=== PATIENT | male | born 1945 | race African-American/Black ===

== ENCOUNTER 2019-09-23 04:09 | Inpatient (IN) | payer MEDICARE, OTHER ==
[~2019-09-23] VITALS: Ht 175.3 cm; Wt 68.8 kg
[~2019-09-23 04:09] MED LIST: ASPI-496 PO; DEXT15DR5 EACHEYE; HYDR-3240 PO; METH750T87 PO; TRIA1CAP3 PO
--- NOTE | 2019-09-23 04:24 | NUR ---
Pt arrives via EMS for left sided, sharp chest pain with SOB that started around 0030. Pt denies previous cardiac hx. Pt is alert and oriented. Pt with slightly labored breathing and HR in the 120-130's. Pt able to ambulate with stand-by assist. 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 PIV placed by EMS. Pt does not wear oxygen at home. Pt current 50 year smoker. Pt in gown and monitors. EKG performed.
[2019-09-23] MEDS ORDERED: SODIUM CHLORIDE FLUSH 10ML SYR IVF ONE (04:30)
[2019-09-23] MEDS ORDERED: ASPI-496 PO ×2 (04:40→14:01)
[2019-09-23] MEDS ORDERED: PRED5TAB19 PO (04:40)
[2019-09-23] MEDS ORDERED: ALBU0.63 NEB (04:40)
[2019-09-23] MEDS ORDERED: POVI15DR EACHEYE (04:40)
[2019-09-23] MEDS ORDERED: FERR325T5 PO (04:40)
[2019-09-23] MEDS ORDERED: QUET50TA79 PO (04:40)
[2019-09-23] MEDS ORDERED: NICO-487 TD (04:40)
--- NOTE | 2019-09-23 04:42 | NUR ---
Lab at bedside for draw. Pt reports improvement in SOB symptoms. Pt continues to report 3/10 sharp chest pain.
[2019-09-23 04:53] LABS: MEAN CORPUSCULAR HEMOGLOBIN 19.9 pg (27.5-34.5); MEAN CORPUSCULAR VOLUME 66.4 fL (81-97); MEAN PLATELET VOLUME 6.2 fL (7.4-10.4); PLATELET COUNT 475 x10^3/uL (130-400)
[2019-09-23 05:02] LABS: ALANINE AMINOTRANSFERASE 26 U/L (12-78); ANION GAP 8 mmol/L (5-15); CALCIUM 8.2 mg/dL (8.5-10.1); CHLORIDE 105 mmol/L (98-107)
[2019-09-23 05:07] LABS: ALKALINE PHOSPHATASE 70 U/L (45-117); BILIRUBIN,TOTAL 0.3 mg/dL (0.2-1.0); CREATININE 0.92 mg/dL (0.7-1.3); T4 (THYROXINE) 8.7 mcg/dL (4.5-12.1); TOTAL PROTEIN 7.3 g/dL (6.4-8.2); TROPONIN I < 0.015 ng/mL (0.000-0.045)
--- NOTE | 2019-09-23 05:15 | NUR ---
SPOKE WITH PA ABOUT WBC AND TACHYCARDIA. LACTATE, FLUIDS, AND BCX2 SUGGESTED. HE WILL CONSULT WITH .
[2019-09-23] MEDS ORDERED: METOPROLOL 1 MG/ML, 5ML ONE (05:22)
[2019-09-23] MEDS ORDERED: NITROGLYCERIN OINT 2%, 1GM TP ONE ×2 (05:23→05:30)
[2019-09-23] MEDS: METOPROLOL 1 MG/ML, 5ML IVPush PRN ×2 (05:28→13:07)
[2019-09-23] MEDS ORDERED: NITROGLYCERIN SINGLE TAB 0.4 MG SL PRN (05:30)
[2019-09-23] MEDS ORDERED: SODIUM CHLORIDE 0.9% 1,000ML IVBOLUS ONE (05:30)
--- NOTE | 2019-09-23 05:30 | NUR ---
Pt medicated with nitro paste and one dose of metoprolol. NS bolus started. Pt reports improvement of symptoms with heart rate in the low 100's.
[2019-09-23 05:42] LABS: MD YES
[2019-09-23 05:43] LABS: BANDS%(MANUAL) 1 % (0-7); EOS% (MANUAL) 1 % (1-7); LYMPH#(MANUAL) 2.55 x10^3/uL (1-3.4); LYMPHS% (MANUAL) 13 % (22-44); MONOS#(MANUAL) 0.59 x10^3/uL (0.3-2.7); MONOS% (MANUAL) 3 % (2-9); SEG#(MANUAL) 16.07 x10^3/uL (1.8-6.8); SEGS% (MANUAL) 82 % (42-75)
[2019-09-23 05:44] LABS: ANISOCYTOSIS 1+; HYPOCHROMIA 1+; MICROCYTOSIS 2+; POLYCHROMASIA 1+
[2019-09-23 05:45] LABS: <PLATELET ESTIMATE> INCREASED; <PLT MORPHOLOGY> NORMAL PLT MORPH
--- NOTE | 2019-09-23 06:00 | NUR ---
maria guadalupe: [phone] (daughter)
--- NOTE | 2019-09-23 06:27 | NUR ---
SPOKE TO PA ABOUT ABX. HE WILL CONSULT WITH MD WHEN HE RETURNS AND ORDER ACCORDINGLY.
--- NOTE | 2019-09-23 06:41 | NUR ---
NO ABX PER ERMD AND ER PA
--- NOTE | 2019-09-23 06:58 | NUR ---
RECEIVED REPORT FROM NIDA LAZAR
[2019-09-23] MEDS ORDERED: KETOROLAC 30 MG/1 ML IV PRN (07:30)
[2019-09-23] MEDS ORDERED: ONDANSETRON ODT 4 MG PO PRN (07:30)
[2019-09-23] MEDS ORDERED: ACETAMINOPHEN 325 MG TABLET PO PRN (07:30)
[2019-09-23] MEDS ORDERED: ONDANSETRON 2MG/ML, 2ML IVPush PRN (07:30)
[2019-09-23] MEDS ORDERED: CARVEDILOL 6.25 MG TABLET PO SCH (07:30)
[2019-09-23] MEDS ORDERED: NITROGLYCERIN 0.4 MG BOTTLE (25 TABS) SL PRN (07:30)
[2019-09-23] MEDS ORDERED: POTASSIUM CHLORIDE 20 MEQ TAB.ER.PRT PO ONE (07:30)
[2019-09-23] MEDS ORDERED: FERROUS SULFATE 325 MG TABLET PO SCH (07:30)
[2019-09-23] MEDS ORDERED: MORPHINE SULFATE 4 MG/ML, 1ML IVPush PRN (07:30)
[2019-09-23] MEDS ORDERED: POTASSIUM CHLORIDE 20 MEQ TAB.ER.PRT ONE (07:42)
[2019-09-23] MEDS ORDERED: ENOXAPARIN 40 MG/0.4 ML ONE (07:42)
[2019-09-23] MEDS ORDERED: CARVEDILOL 3.125 MG TABLET ONE (07:42)
[2019-09-23] MEDS: ENOXAPARIN 40 MG/0.4 ML SQ SCH (07:48)
[2019-09-23 07:50] LABS: TROPONIN I 0.017 ng/mL (0.000-0.045)
--- NOTE | 2019-09-23 08:20 | NUR ---
AFTER MORNING MEDS GIVEN WITH FERROUS SULFATE REQUESTED FROM PHARMACY, PT ASSISTED ONTO HOSPITAL BED AND GIVEN BREAKFAST. PT STATES HE HAS MILD SHARP CP AT THIS TIME AND CONTINUES TO FEEL WEAK. NOTED TO HAVE BANDAID UNDER LEFT EYE AND RIGHT SIDE OF NECK. 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
--- NOTE | 2019-09-23 08:47 | NUR ---
SPOKE WITH PHARMACIST AND HOSPITAL DOES NOT HAVE [facility] ER. CONTACTED FAMILY ANTOINETTE AT PT'S REQUEST AND ASKED THAT SHE BRING THE MEDICATION IN
[2019-09-23] MEDS ORDERED: NICOTINE 21 MG/24 HR PATCH.TD24 ONE (08:57)
[2019-09-23] MEDS ORDERED: ASPIRIN 81 MG TABLET EC ONE (08:57)
[2019-09-23] MEDS ORDERED: ALBUTEROL SULFATE 2.5 MG/3 ML NPPB PRN (09:00)
--- NOTE | 2019-09-23 09:00 | NUR ---
TRAZADONE TO BE BROUGHT IN FROM HOME BUT NOT HERE AT THIS TIME SO NOT GIVEN NOTED ON MAR
[2019-09-23 09:13] LABS: CULTURE INDICATED? NO; MICROSCOPIC NOT IND
[2019-09-23] MEDS: TRIAMTERENE-HCTZ 37.5/25 MG TABLET PO SCH (09:37)
[2019-09-23] MEDS: ASPIRIN 81 MG TABLET EC PO SCH (09:37)
[2019-09-23] MEDS: NICOTINE 21 MG/24 HR PATCH.TD24 TD SCH (09:37)
--- NOTE | 2019-09-23 09:50 | NUR ---
PT PROVIDED INCENTIVE SPIROMETER AND USED IT 10 TEN TIMES.
--- NOTE | 2019-09-23 11:55 | NUR ---
VISITORS AT BEDSIDE. PT PROVIDED LUNCH
[2019-09-23] MEDS ORDERED: QUETIAPINE 25MG TABLET ONE (12:44)
[2019-09-23] MEDS: QUETIAPINE 25MG TABLET PO SCH ×2 (12:47→20:57)
[2019-09-23 13:00] LABS: TROPONIN I 0.024 ng/mL (0.000-0.045)
--- NOTE | 2019-09-23 13:14 | NUR ---
REPORT TO SELENA. PT TO BE TRANSPORTED TO FLOOR.
[2019-09-23 13:55] VITALS: BP 119/67
[2019-09-23] MEDS ORDERED: HYDROCHLOROTH12.5 MG PO (14:01)
[2019-09-23 14:03] VITALS: BP 119/67
[2019-09-23 16:03] LABS: RAPID INFLUENZA A Negative (Negative); RAPID INFLUENZA B Negative (Negative)
[2019-09-23 17:25] VITALS: BP 122/65
[2019-09-23] MEDS: CARVEDILOL 3.125 MG TABLET PO SCH (17:26)
[2019-09-23 19:12] VITALS: BP 95/60
[2019-09-24 00:54] VITALS: BP 99/64
[2019-09-24 05:06] LABS: MEAN CORPUSCULAR HEMOGLOBIN 19.9 pg (27.5-34.5); MEAN CORPUSCULAR VOLUME 66.6 fL (81-97); MEAN PLATELET VOLUME 7.2 fL (7.4-10.4); PLATELET COUNT 427 x10^3/uL (130-400); RED BLOOD COUNT 3.56 x10^6/uL (4.38-5.82); RED CELL DISTRIBUTION WIDTH 19.7 % (9.4-14.8)
[2019-09-24 05:07] LABS: MEAN CORPUSCULAR HGB CONC 29.9 g/dL (33.2-36.2)
[2019-09-24 05:16] LABS: ANION GAP 5 mmol/L (5-15); CALCIUM 8.6 mg/dL (8.5-10.1); CHLORIDE 105 mmol/L (98-107)
[2019-09-24 05:21] LABS: % IRON SATURATION 7 % (20-55); CHOL/HDL RATIO 2.6; CHOLESTEROL, TOTAL 149 mg/dL (140-239); CREATININE 0.73 mg/dL (0.7-1.3); HDL CHOL % 38 % (26-37); HDL CHOLESTEROL (DIRECT) 57 mg/dL (40-60); IRON LEVEL 24 mcg/dL (65-175); LDL CHOLESTEROL,CALCULATED 63 mg/dL (54-169); LDL/HDL RATIO 1.1 (0.5-3.0); TOTAL IRON BINDING CAPACITY 334 mcg/dL (250-450); TRIGLYCERIDES 143 mg/dL (50-200); VLDL CHOLESTEROL 29 mg/dL (0-25)
[2019-09-24 06:11] VITALS: BP 105/62
[2019-09-24 06:11] LABS: MD YES
[2019-09-24] MEDS: CARVEDILOL 3.125 MG TABLET PO SCH (06:13)
[2019-09-24 06:14] LABS: ANISOCYTOSIS 1+; HYPOCHROMIA 1+; LYMPH#(MANUAL) 1.74 x10^3/uL (1-3.4); LYMPHS% (MANUAL) 11 % (22-44); MICROCYTOSIS 2+; MONOS#(MANUAL) 0.63 x10^3/uL (0.3-2.7); MONOS% (MANUAL) 4 % (2-9); POLYCHROMASIA 1+; SEG#(MANUAL) 13.43 x10^3/uL (1.8-6.8); SEGS% (MANUAL) 85 % (42-75)
[2019-09-24 06:15] LABS: <PLATELET ESTIMATE> ADEQUATE; <PLT MORPHOLOGY> NORMAL PLT MORPH; TARGET CELLS 1+
[2019-09-24] MEDS ORDERED: FERROUS SULFATE 325 MG TABLET PO SCH (08:00)
[2019-09-24] MEDS: NICOTINE 21 MG/24 HR PATCH.TD24 TD SCH (08:32)
[2019-09-24] MEDS: TRIAMTERENE-HCTZ 37.5/25 MG TABLET PO SCH (08:32)
[2019-09-24] MEDS: ENOXAPARIN 40 MG/0.4 ML SQ SCH (08:33)
[2019-09-24] MEDS: ASPIRIN 81 MG TABLET EC PO SCH (08:33)
[2019-09-24] MEDS: QUETIAPINE 25MG TABLET PO SCH ×2 (08:33→20:57)
[2019-09-24 09:36] LABS: OCCULT BLOOD NEGATIVE (NEGATIVE)
[2019-09-24 15:10] VITALS: BP 107/61
[2019-09-24] MEDS ORDERED: IRON SUCROSE COMPLEX 100MG/5ML IV SCH (16:00)
[2019-09-24] MEDS ORDERED: MAGNESIUM SULFATE PMX 2GM/50ML 50 ML IV ONE (17:00)
[2019-09-24] MEDS: FERROUS SULFATE 325 MG TABLET PO SCH (18:26)
[2019-09-24] MEDS: METOPROLOL TARTRATE 25 MG TABLET PO SCH (18:26)
[2019-09-24 20:02] VITALS: BP 93/60
[2019-09-25 02:00] VITALS: BP 100/64
[2019-09-25 05:45] VITALS: BP 105/65
[2019-09-25] MEDS: METOPROLOL TARTRATE 25 MG TABLET PO SCH (05:48)
[2019-09-25 07:02] VITALS: BP 92/58
[2019-09-25] MEDS ORDERED: IRON SUCROSE COMPLEX 100MG/5ML IV SCH (09:00)
[2019-09-25] MEDS ORDERED: REGADENOSON 0.4 MG/5 ML SYRINGE ONE (09:41)
[2019-09-25 11:39] VITALS: BP 123/64
[2019-09-25] MEDS: ENOXAPARIN 40 MG/0.4 ML SQ SCH (11:40)
[2019-09-25] MEDS: FERROUS SULFATE 325 MG TABLET PO SCH (11:40)
[2019-09-25] MEDS: ASPIRIN 81 MG TABLET EC PO SCH (11:40)
[2019-09-25] MEDS: TRIAMTERENE-HCTZ 37.5/25 MG TABLET PO SCH (11:40)
[2019-09-25] MEDS: NICOTINE 21 MG/24 HR PATCH.TD24 TD SCH (11:41)
[2019-09-25] MEDS: QUETIAPINE 25MG TABLET PO SCH (11:41)
[2019-09-25 13:53] VITALS: BP 98/57
[2019-09-25] MEDS ORDERED: FERR325T5 PO (14:42)
[2019-09-25] MEDS ORDERED: METO25TA35 PO (14:42)
== END 2019-09-25 16:50 | disposition home or self-care (01) | DRG 311 ==
LOC: ED 05:10 → INTOOBSV 06:17 → EDIP 06:17 → 5SO 14:10 → OBSVTOIN 09-24 14:25 → DCLOUNGE 09-25 16:35
PROVIDERS: ADMIT Internal Medicine; ATTEND Internal Medicine
PROC: 0T9B70Z Drainage of Bladder with Drainage Device, Via Natural or Artificial Opening (ICD-10-PCS; principal; 2019-09-24)
DX: I24.8 Other forms of acute ischemic heart disease (principal); J81.1 Chronic pulmonary edema; I47.2 Ventricular tachycardia; J98.11 Atelectasis; I44.7 Left bundle-branch block, unspecified; I10 Essential (primary) hypertension; D50.0 Iron deficiency anemia secondary to blood loss (chronic); D72.829 Elevated white blood cell count, unspecified; E87.6 Hypokalemia; M06.9 Rheumatoid arthritis, unspecified; T38.0X5A Adverse effect of glucocorticoids and synthetic analogues, initial encounter; D47.3 Essential (hemorrhagic) thrombocythemia; Z87.891 Personal history of nicotine dependence; Z87.892 Personal history of anaphylaxis
CPT/HCPCS: 36415; 71045; 78452; 80048; 80053; 80061; 81003; 82272; 82274; 83540; 83550; 83605; 83735; 83880; 84100; 84436; 84443; 84484; 85025; 86850; 86900; 87040; 87400; 93005; 93017; 93306; 99285; G0378; J1650; J2785; A9502; J3475; J7030; J7512